=== PATIENT | male | born 1985 | race American Indian/Alaskan Native ===

== ENCOUNTER 2017-11-13 01:33 | Emergency (ER) | payer SELFPAY ==
[2017-11-13 02:30] VITALS: BP 150/96
[2017-11-13] MEDS ORDERED: NORCO 5/325 ONE (05:14)
[2017-11-13] MEDS ORDERED: NORCO 5/325 PO ONE (05:15)
--- NOTE | 2017-11-13 05:19 | Emergency Department Report ---
Abscess Boil HPI - HPI Chief Complaint: Animal Bite Stated Complaint: LEFT EAR PAIN Time Seen by Provider: 11/13/17 05:14 Duration: 2 Days History: Yes Pain, No Fever, No Purulent Drainage, No Numbness, No Foreign Body , No Previous History, No Insect Bite HPI: 32-year-old [place] male comes in complaining of left ear pain and swelling 2 days. Patient states he doesn't know if something had bit him on his ear or not. Patient past medical history is asthma currently takes no medication and has no known drug allergies. Patient has not taken anything for pain and reports his pain is a 6 out of 10 for the last 2 days. Home Medications: Previous Rx's Medication Instructions Recorded Last Taken Type Cephalexin [Keflex] 500 mg PO BID #20 capsule 11/13/17 Unknown Rx Ibuprofen [Motrin 800 MG tab] 800 mg PO Q8HR PRN 10 Days #30 11/13/17 Unknown Rx tablet Allergies/Adverse Reactions: Allergies Allergy/AdvReac Type Severity Reaction Status Date / Time No Known Allergies Allergy Verified 11/13/17 02:25 ED Review of Systems ROS: Stated complaint: LEFT EAR PAIN Other details as noted in HPI Skin: lesions (left earlobe) ED Past Medical Hx - Past Medical History Previous Medical History?: Yes Hx Asthma: Yes - Surgical History Past Surgical History?: No Additional Surgical History: hernia repair - Social History Smoking Status: Never Smoker Substance Use Type: Alcohol - Medications Home Medications: Home Medications Medication Instructions Recorded Confirmed Last Taken Type Cephalexin [Keflex] 500 mg PO BID #20 capsule 11/13/17 Unknown Rx Ibuprofen [Motrin 800 MG tab] 800 mg PO Q8HR PRN 10 Days #30 11/13/17 Unknown Rx tablet ED Abscess Boil Physical Exam - Exam General: Vital signs noted. No distress. Alert and acting appropriately. Size: 3 cm Exam: Yes Tenderness, Yes Fluctuance, Yes Normal Neurologic Exam, Yes Normal Circulation, No Surrounding Cellulites/Erythema, No Lymphangitis, No Crepitation , No Heart Murmur I & D Note - I & D Note I & D Note: Patient ear was draped with sterile drape, iodine to clean the area scalpel 11 blade used to make a 1/2 incision to the posterior earlobe. Purulent serosanguineous discharge was expressed out of the abscess. Area was cleaned sterile bandage placed. Patient tolerated procedure well ED Course Vital Signs 11/13/17 02:26 Temperature 98.0 F Pulse Rate 96 H Respiratory 18 Rate Blood Pressure 150/96 O2 Sat by Pulse 96 Oximetry Critical care attestation.: If time is entered above; I have spent that time in minutes in the direct care of this critically ill patient, excluding procedure time. ED Medical Decision Making - Medical Decision Making History has been evaluated by this provider fast track. Narco 5 mg given to patient for pain management. Incision and drainage of the left earlobe with standard of incision and drainage procedure. Patient be discharged home on Keflex. As well as ibuprofen for pain management. Patient to follow-up with his primary care provider or [facility]. Patient verbalized understanding ED Disposition Clinical Impression: Abscess of left earlobe Disposition: - TO HOME OR SELFCARE Is pt being admited?: No Does the pt Need Aspirin: No Condition: Stable Instructions: Abscess (ED), Abscess Incision and Drainage (ED), Cephalexin (By mouth) Additional Instructions: Please complete antibiotics as prescribed. Pain medication as needed. Follow- up with [facility] or your primary care provider if symptoms persist or gets worse. Prescriptions: Cephalexin [Keflex] 500 mg PO BID #20 capsule Ibuprofen [Motrin 800 MG tab] 800 mg PO Q8HR PRN 10 Days #30 tablet PRN Reason: Pain , Severe (7-10) Referrals: PRIMARY CARE, [Primary Care Provider] - 3-5 Days [facility] [Provider Group] - 3-5 Days Forms: Work/School Release Form(ED)
== END 2017-11-13 05:25 | disposition home or self-care (01) ==
LOC: ED 01:33
DX: H60.02 Abscess of left external ear (principal)
CPT/HCPCS: 99283

== ENCOUNTER 2018-01-04 14:27 | Emergency (ER) | payer SELFPAY ==
[2018-01-04 14:33] VITALS: BP 139/91
--- NOTE | 2018-01-04 16:04 | Emergency Department Report ---
Abscess Boil HPI - HPI Chief Complaint: Skin/Abscess/Foreign Body Stated Complaint: EYE PAIN Time Seen by Provider: 01/04/18 15:50 Duration: 1 Day Location: Other Severity: Moderate History: Yes Pain (right eyebrow boil), Yes Previous History (right facial area) , No Fever (right eyebrow), No Purulent Drainage, No Numbness, No Foreign Body, No Insect Bite HPI: Should he reports that he noticed a small bump yesterday on his right eyebrow but notes bigger. He reports pain 7 out of 10 or so with touching. Tetanus vaccine is up-to-date. Denies any fever or chills or any drainage. He states that he has had similar bump on a different part of his face. Patient does not have a primary care physician but he said he does have access to primary care last time he was here he had an abscess that was drained which was 11/13/2017. Home Medications: Previous Rx's Medication Instructions Recorded Last Taken Type Cephalexin [Keflex] 500 mg PO BID #20 capsule 11/13/17 Unknown Rx Ibuprofen [Motrin 800 MG tab] 800 mg PO Q8HR PRN 10 Days #30 01/04/18 Unknown Rx tablet Sulfamethoxazole/Trimethoprim 1 each PO Q12H 10 Days #20 tablet 01/04/18 Unknown Rx [Bactrim Ds Tablet] Allergies/Adverse Reactions: Allergies Allergy/AdvReac Type Severity Reaction Status Date / Time No Known Allergies Allergy Verified 11/13/17 02:25 ED Review of Systems ROS: Stated complaint: EYE PAIN Other details as noted in HPI Constitutional: denies: chills, fever ENT: ear pain Respiratory: denies: cough, shortness of breath, SOB with exertion, SOB at rest , stridor, wheezing Cardiovascular: denies: chest pain, palpitations, edema, syncope Gastrointestinal: denies: abdominal pain, nausea, vomiting, diarrhea Genitourinary: denies: urgency, dysuria Musculoskeletal: denies: back pain, joint swelling, arthralgia Skin: other (boil to right facial area). denies: rash, lesions Neurological: denies: headache ED Past Medical Hx - Past Medical History Previous Medical History?: Yes Hx Asthma: Yes - Surgical History Past Surgical History?: Yes Additional Surgical History: hernia repair - Family History Family history: hypertension - Social History Smoking Status: Never Smoker Substance Use Type: Alcohol - Medications Home Medications: Home Medications Medication Instructions Recorded Confirmed Last Taken Type Cephalexin [Keflex] 500 mg PO BID #20 capsule 11/13/17 Unknown Rx Ibuprofen [Motrin 800 MG tab] 800 mg PO Q8HR PRN 10 Days #30 01/04/18 Unknown Rx tablet Sulfamethoxazole/Trimethoprim 1 each PO Q12H 10 Days #20 tablet 01/04/18 Unknown Rx [Bactrim Ds Tablet] ED Abscess Boil Physical Exam - Exam General: Vital signs noted. No distress. Alert and acting appropriately. This is a 32-year-old male well-nourished well-developed in no acute distress. Front/Back of Body, Lg (Color): 1 - Right eyebrow with dime-sized indurated fluctuant erythema, tender to palpate abscess. No drainage noted. Surrounding cellulitis. Size: 1 cm Exam: Yes Tenderness (right eyebrow ,outer), Yes Fluctuance, Yes Surrounding Cellulites/Erythema, Yes Heart Murmur (S1, S2. Tachycardic at 104), Yes Normal Neurologic Exam (alert and oriented 3, gait is normal.), Yes Normal Circulation (No cce. + 2 pulses in all extremities, no neurovascular compromise) , No Lymphangitis, No Crepitation I & D Note - I & D Note I & D Note: Incision and drainage procedure: Under sterile procedure, 1 cm indurated, fluctuant area to right outer eyebrow cleansed with iodine followed by normal saline. Sterile #18-gauge and should use and half a cc of lidocaine placed in wound. Extracted back moderate amount of thick pus from area. No induration has mostly resolved. Still with some erythema. Tetanus vaccine is not up-to-date so we will update tetanus vaccine. Area cleansed with iodine and normal saline and sterile dry dressing placed inside. Patient tolerated procedure well. ED Course Vital Signs 01/04/18 14:31 Temperature 98.3 F Pulse Rate 104 H Respiratory 17 Rate Blood Pressure 139/91 O2 Sat by Pulse 97 Oximetry Vital Signs 01/04/18 01/04/18 14:31 17:45 Temperature 98.3 F Pulse Rate 104 H 92 H Respiratory 17 Rate Blood Pressure 139/91 O2 Sat by Pulse 97 Oximetry - Reevaluation(s) Reevaluation #1: 01/04/18 17:47 Patient given Boostrix 0.5 mL in emergency room to update tetanus. Reevaluation #2: 01/04/18 17:58 Patient given Motrin 800 mg by mouth emergency room for pain. Critical care attestation.: If time is entered above; I have spent that time in minutes in the direct care of this critically ill patient, excluding procedure time. ED Medical Decision Making - Medical Decision Making This is a 32-year-old male here report that he had bumped it started on his face that started small yesterday but today he woke up and bumped bumpers.. He said he had similar lump on his face. He is never seen a sausage grinder for problem. Pt was seen and examine by myself. physical exam is normal except he has abscess, 1 cm, indurated and fluctuant to right brow. I educated patient on diagnosis and procedure to be done. Incision and drainage procedure done to abscess right out of breath. Please see iodine for details. patient given boostrix 0.5 ml to update tetanus. he was also given motrin 800 mg by mouth in emergency room for pain. He tolerated procedure well. patient does have access to medical care at present so i told him to schedule an appointment to see dr. Joaquin and/or [facility] which her primary care doctors. I also told him that he needs to follow up with Dr. Puentes is a sausage grinder for recurrent boils on facial area. Patient voiced understanding. Discharge instruction given on acute care and he voiced understanding. Patient discharged home in stable condition.VSS, afeb. No pain at present. Discharge home with prescription for Bactrim and Motrin. I discussed with him that if area becomes increasingly redness, swelling, pain, fever and/or chills, return to the emergency room SUZ[facility]NA and he voiced understanding. ED Disposition Clinical Impression: Cellulitis and abscess of face, Encounter for incision and drainage procedure Disposition: TO HOME OR SELFCARE Is pt being admited?: No Does the pt Need Aspirin: No Condition: Stable Instructions: Cellulitis (ED), Abscess Incision and Drainage (ED) Additional Instructions: Please see discharge instruction in acute wound care Apply warm compresses to affected area 4 times a day to facilitate then and increased drainage return to emergency room in 4 days for removal of packing Keep affected area clean and dry Take Motrin for pain and please take medication with food to prevent nausea or irritation to stomach lining Take Bactrim DS for infection Return to the emergency room if, he developed fever, chills, increased pain and drainage from site, nausea and vomited, increase in redness and/or weakness. Prescriptions: Ibuprofen [Motrin 800 MG tab] 800 mg PO Q8HR PRN 10 Days #30 tablet PRN Reason: Pain , Severe (7-10) Sulfamethoxazole/Trimethoprim [Bactrim Ds Tablet] 1 each PO Q12H 10 Days #20 tablet Referrals: MINDY PUENTES MD [Staff Physician] - 01/07/18 PRIMARY CARE, [Primary Care Provider] - 01/07/18 SHRUTHI JOAQUIN MD [Staff Physician] - 01/07/18 Forms: Work/School Release Form(ED)
[2018-01-04] MEDS ORDERED: XYLOCAINE 1% MPF 5 mL INFILTRATI ONE (16:05)
[2018-01-04] MEDS ORDERED: BOOSTRIX IM ONE (17:43)
[2018-01-04] MEDS ORDERED: MOTRIN PO ONE (17:53)
== END 2018-01-04 18:07 | disposition home or self-care (01) ==
LOC: ED 14:27
DX: L02.01 Cutaneous abscess of face (principal); L03.211 Cellulitis of face; J45.909 Unspecified asthma, uncomplicated
CPT/HCPCS: 90471; 90715; 99282